=== PATIENT | female | born 1980 | race Caucasian/White ===

== ENCOUNTER 2025-10-05 08:46 | Emergency (ER) | payer SELFPAY ==
[~2025-10-05] VITALS: Ht 160 cm; Wt 71.0 kg
[2025-10-05 09:05] VITALS: O2SAT 100
[2025-10-05] MEDS ORDERED: DIPH50CA42 MT (09:53)
[2025-10-05] MEDS ORDERED: FAMO40TA70 MT (09:53)
[2025-10-05] MEDS ORDERED: P20 PO (09:53)
[2025-10-05] MEDS ORDERED: DIPHENHYDRAMINE 50MG CAPSULE PO ONE (10:00)
[2025-10-05] MEDS: PREDNISONE 20MG TABLET PO ONE (10:04)
[2025-10-05] MEDS: FAMOTIDINE 20MG TABLET PO STA (10:04)
[2025-10-05] MEDS: DIPHENHYDRAMINE 25MG CAPSULE PO NR (10:05)
[2025-10-05 10:18] VITALS: BP 155/92; PULSE 79; RESP 16; TEMP 36.9; O2SAT 100
== END 2025-10-05 10:20 | disposition home or self-care (01) ==
LOC: ER 08:46
DX: T78.40XA Allergy, unspecified, initial encounter (principal); L50.9 Urticaria, unspecified; Z98.890 Other specified postprocedural states; X58.XXXA Exposure to other specified factors, initial encounter; Y93.89 Activity, other specified; Y92.89 Other specified places as the place of occurrence of the external cause; Y99.8 Other external cause status
CPT/HCPCS: 99284; Q0163; J7512